=== PATIENT | female | born 1975 | race Caucasian/White ===

== ENCOUNTER 2022-12-22 07:25 | Day surgery (SDC) | payer BC ==
[~2022-12-22] VITALS: Ht 154.9 cm; Wt 95.3 kg
[2022-12-22 08:02] LABS: HCG,QUAL RESULT NEGATIVE (NEGATIVE)
[2022-12-22] MEDS ORDERED: ROCURONIUM BROMIDE 10 MG/ML (ZEMURON) ONE (10:11)
[2022-12-22] MEDS ORDERED: NS 1000 ML IV.SOLN IV ONE (10:11)
[2022-12-22] MEDS ORDERED: BUPIVACAINE /PF 0.5% 30 ML VIAL ONE (10:11)
[2022-12-22] MEDS ORDERED: ONDANSETRON HCL 4 MG/2 ML VIAL ONE ×2 (10:11→13:42)
[2022-12-22] MEDS ORDERED: NS IRRIG SOLN 1000 ML IR ONE (10:11)
[2022-12-22] MEDS ORDERED: METOCLOPRAMIDE HCL 10 MG/2 ML VIAL ONE (10:11)
[2022-12-22] MEDS ORDERED: DEXAMETHASONE SOD PHOSPHATE 4 MG/ML VIAL ONE (10:11)
[2022-12-22] MEDS ORDERED: SUGAMMADEX SODIUM 200 MG/2 ML VIAL IV ONE (10:11)
[2022-12-22] MEDS ORDERED: LEVOFLOXACIN 500 mg/D5W 100 mL IVPB IV ONE (10:11)
[2022-12-22] MEDS ORDERED: SUCCINYLCHOLINE CHLORIDE 20 MG/ML(QUELICIN) ONE (10:11)
[2022-12-22] MEDS ORDERED: fentaNYL CITRATE/PF 100 MCG/2 ML AMP ONE (10:11)
[2022-12-22] MEDS ORDERED: PROPOFOL 200MG/ 20ML VIAL (DIPRIVAN) IV ONE (10:11)
[2022-12-22] MEDS ORDERED: KETOROLAC TROMETHAMINE 30 MG VIAL ONE (10:11)
[2022-12-22] MEDS ORDERED: HYDROmorphone 2 MG/ML VIAL ONE (10:11)
[2022-12-22] MEDS ORDERED: HYDROmorphone 2 MG/ML VIAL IVP PRN (10:45)
[2022-12-22] MEDS ORDERED: ONDANSETRON HCL 4 MG/2 ML VIAL IVP PRN (10:45)
[2022-12-22] MEDS ORDERED: HYDROmorphone 1 MG/ML INJ. CARTRIDGE IVP PRN ×2 (10:45)
[2022-12-22] MEDS ORDERED: ONDANSETRON HCL 4 MG/2 ML VIAL IVP ONE (13:30)
[2022-12-22] MEDS ORDERED: D5/0.45 NS 1,000 ML IV SCH (13:45)
[2022-12-22 16:36] VITALS: BP_SYST 142
[2022-12-23] MEDS ORDERED: LEVO250T73 PO (14:02)
[2022-12-23] MEDS ORDERED: ONDA-8 TL (16:41)
== END 2022-12-22 14:53 | disposition home or self-care (01) ==
LOC: SDS 07:25 → SMU 07:27 → SDS 14:53
PROVIDERS: ATTEND Colon & Rectal Surgery
DX: K80.10 Calculus of gallbladder with chronic cholecystitis without obstruction (principal); Z87.891 Personal history of nicotine dependence; Z88.0 Allergy status to penicillin; Z88.1 Allergy status to other antibiotic agents; Z79.899 Other long term (current) drug therapy
CPT/HCPCS: 36415; 84703; 86886; 86900; 86901; 87081; 88304; C1727; C1758; J0330; J1100; J1170; J1885; J1956; J2405; J2704; J2765; J3010; J3490; J7030; J7120; Q9967

== ENCOUNTER 2022-12-22 20:07 | Observation (INO) | payer BC ==
[~2022-12-22] VITALS: Ht 154.9 cm; Wt 98.0 kg
[2022-12-22 21:03] VITALS: BP_SYST 144
[2022-12-22 21:59] LABS: BASOPHILS % (AUTO) 0.3 % (0.0-2.0); HEMATOCRIT 37.7 % (36-48); HEMOGLOBIN 13.2 g/dL (12.0-16.0); LYMPHOCYTES # (AUTO) 1.1 K/uL (1.0-5.5); LYMPHOCYTES % (AUTO) 7.8 % (20.5-51.5); MEAN CORPUSCULAR HEMOGLOBIN 31 pg (27-31); MEAN CORPUSCULAR HGB CONC 35 % (32-36); MEAN CORPUSCULAR VOLUME 90 fL (79.0-98.0); MONOCYTES # (AUTO) 0.4 K/uL (0.0-1.0); MONOCYTES % (AUTO) 2.7 % (1.7-9.3); NEUTROPHILS # (AUTO) 12.5 K/uL (1.8-7.7); NEUTROPHILS % (AUTO) 89.2 % (40.0-70.0); PLATELET COUNT (AUTO) 263 K/uL (130-430); RED BLOOD CELL COUNT(AUTO) 4.21 MIL/uL (4.2-6.2); RED CELL DISTRIBUTION WIDTH 13.5 % (9.0-15.0)
[2022-12-22 22:08] LABS: CALCIUM 8.9 mg/dL (8.4-11.0); CREATININE 0.95 mg/dL (0.55-1.30)
[2022-12-22 22:13] LABS: ALBUMIN 3.8 g/dL (3.4-4.8); C-REACTIVE PROTEIN QUANT 1.4 mg/dL (0-0.5); TOTAL BILIRUBIN 0.6 mg/dL (0.0-1.0)
[2022-12-22] MEDS ORDERED: NS 1000 ML IV.SOLN IV ONE (23:15)
[2022-12-22] MEDS ORDERED: cefTRIAXone 2 GM VIAL ONE (23:50)
[2022-12-23] MEDS ORDERED: DIPHENHYDRAMINE INJ 50 MG/ML VIAL IVP ONE (00:45)
[2022-12-23] MEDS ORDERED: methylPREDNISolone SOD SUCC/PF 62.5 MG/ML VIAL IVP ONE (00:45)
[2022-12-23] MEDS ORDERED: metroNIDAZOLE 500 mg/NS 100 ML IV ONE (00:45)
[2022-12-23 01:07] LABS: BILIRUBIN,URINE NEGATIVE (NEGATIVE); BLOOD, URINE NEGATIVE (NEGATIVE); CLARITY/URINE CLEAR (CLEAR); COLOR,URINE YELLOW (YELLOW); GLUCOSE,URINE NEGATIVE (NEGATIVE); KETONES,URINE NEGATIVE (NEGATIVE); LEUKOCYTE ESTERASE ,URINE NEGATIVE (NEGATIVE); NITRITE, URINE NEGATIVE (NEGATIVE); PH,URINE 6.5 (5.0-8.0); PROTEIN URINE NEGATIVE (NEGATIVE); UROBILINOGEN,URINE 0.2 (0.2-1.0)
[2022-12-23 01:30] VITALS: BP_SYST 136
[2022-12-23] MEDS: D5/0.45 NS 1,000 ML IV SCH ×2 (03:44→10:32)
[2022-12-23] MEDS ORDERED: ONDANSETRON HCL 4 MG/2 ML VIAL IVP PRN (06:30)
[2022-12-23] MEDS ORDERED: MAG-AL HYDROX/SIMETH 30 ML UDC PO ONE (06:30)
[2022-12-23 07:20] LABS: BASOPHILS % (AUTO) 0.1 % (0.0-2.0); HEMATOCRIT 37.5 % (36-48); LYMPHOCYTES # (AUTO) 0.9 K/uL (1.0-5.5); MEAN CORPUSCULAR HEMOGLOBIN 31 pg (27-31); MEAN CORPUSCULAR HGB CONC 35 % (32-36); MEAN CORPUSCULAR VOLUME 90 fL (79.0-98.0); MONOCYTES # (AUTO) 0.2 K/uL (0.0-1.0); MONOCYTES % (AUTO) 1.3 % (1.7-9.3); NEUTROPHILS # (AUTO) 13.7 K/uL (1.8-7.7); NEUTROPHILS % (AUTO) 92.6 % (40.0-70.0); PLATELET COUNT (AUTO) 225 K/uL (130-430); RED BLOOD CELL COUNT(AUTO) 4.18 MIL/uL (4.2-6.2); RED CELL DISTRIBUTION WIDTH 13.2 % (9.0-15.0); WHITE BLOOD COUNT (AUTO) 14.8 K/uL (4.8-10.8)
[2022-12-23 08:00] VITALS: BP_SYST 126
[2022-12-23 08:33] LABS: ALANINE AMINOTRANSFERASE 140 U/L (12-78); ALBUMIN 3.6 g/dL (3.4-4.8); ANION GAP 12 (5-15); ASPARTATE AMINOTRANSFERASE 105 U/L (10-37); CALCIUM 8.8 mg/dL (8.4-11.0); CHLORIDE 103 mmol/L (98-107); CREATININE 0.93 mg/dL (0.55-1.30); GFR AFRICAN AMERICAN 83 mL/min (>90); GLUCOSE 202 mg/dL (70-99); TOTAL BILIRUBIN 0.5 mg/dL (0.0-1.0); UREA NITROGEN, BLOOD 9 mg/dL (8-21)
[2022-12-23] MEDS ORDERED: PANTOPRAZOLE SODIUM 40 MG TAB PO SCH (09:00)
[2022-12-23 13:17] VITALS: BP_SYST 133
[2022-12-23] MEDS ORDERED: LEVO250T73 PO (14:02)
[2022-12-23 15:23] VITALS: BP_SYST 145
[2022-12-23] MEDS ORDERED: ONDA-8 TL (16:41)
[2022-12-23 18:21] VITALS: BP_SYST 130
== END 2022-12-23 17:33 | disposition home or self-care (01) ==
LOC: SED 20:07 → SMU 12-23 00:48
PROVIDERS: ADMIT Specialist; ATTEND Specialist
DX: G89.18 Other acute postprocedural pain (principal); R10.13 Epigastric pain; E87.20 Acidosis, unspecified; D72.829 Elevated white blood cell count, unspecified; Z76.0 Encounter for issue of repeat prescription; Z88.0 Allergy status to penicillin; Z90.49 Acquired absence of other specified parts of digestive tract; Z79.899 Other long term (current) drug therapy
CPT/HCPCS: 36415; 76376; 80053; 81003; 82150; 83605; 83690; 84484; 85025; 86140; 87040; 93005; 96365; 99291; G0378; J0696; J1200; J1956; J2405; J2930; J3490